=== PATIENT | male | born 1955 | race Two or more races ===

== ENCOUNTER 2016-09-05 21:12 | Emergency (ER) | payer SELFPAY ==
[~2016-09-05] VITALS: Ht 170.2 cm; Wt 70.8 kg
[2016-09-05] MEDS ORDERED: TDAP [DIPH/PERTUSSIS/TET] 0.5 ML VIAL IM ONE ×2 (21:30→22:55)
[2016-09-05] MEDS ORDERED: LORAZEPAM INJ 2 MG/ML VIAL ONE (22:55)
[2016-09-05] MEDS ORDERED: LORAZEPAM INJ 2 MG/ML VIAL IM ONE (23:00)
[2016-09-06 06:13] VITALS: BP 154/62
== END 2016-09-06 06:15 | disposition home or self-care (01) ==
LOC: ER 21:15 → EDBD 21:15 → ER 09-06 06:15
DX: S09.90XA Unspecified injury of head, initial encounter (principal); F10.10 Alcohol abuse, uncomplicated; R51 Headache; R79.89 Other specified abnormal findings of blood chemistry; X58.XXXA Exposure to other specified factors, initial encounter; Y93.9 Activity, unspecified; Y92.9 Unspecified place or not applicable; Y99.9 Unspecified external cause status
CPT/HCPCS: 70450-TC; 82962-TC; 90715; A4606; A6402; J2060; Z7610